=== PATIENT | female | born 1960 | race Hispanic/Latino ===

== ENCOUNTER 2018-08-18 20:58 | Inpatient (IN) | payer OTHER | END 2018-08-21 11:42 | disposition home or self-care (01) | LOC: 2CH 20:58 | DX: I24.9 Acute ischemic heart disease, unspecified (principal); E03.9 Hypothyroidism, unspecified; E87.6 Hypokalemia; I10 Essential (primary) hypertension ==

== ENCOUNTER 2019-04-27 05:55 | Inpatient (IN) | payer OTHER ==
[2019-04-26 10:43] VITALS: BP 142/86
[2019-04-27] VITALS (19 sets, daily range): BP systolic 102–146; BP diastolic 62–94
[~2019-04-27] VITALS: Ht 160 cm; Wt 61.4 kg
[~2019-04-27 05:55] MED LIST: AEC81 PO; ATOR40TA71 PO; CEFAZOLIN SODIUM 1 GM VIAL IVP SCH; DILT180C63 PO; LACTATED RINGERS 1000ML 1,000 ML IV SCH; LEVO50TA11 PO; OMEP-50 PO; ONDANSETRON HCL 4 MG/2 ML VIAL IVP PRN; TOPI50TA24 PO
[2019-04-27] MEDS ORDERED: LACTATED RINGERS 1000ML 1,000 ML IV ONE (07:47)
[2019-04-27] MEDS ORDERED: CEFAZOLIN SODIUM 1 GM VIAL ONE (07:47)
[2019-04-27] MEDS ORDERED: LIDOCAINE PF 2% 5ML ABBOJECT ONE (07:52)
[2019-04-27] MEDS ORDERED: MIDAZOLAM HCL 1 MG/ML 2ML VIAL ONE (07:53)
[2019-04-27] MEDS ORDERED: ROCURONIUM 10MG/1ML SYR 10 MG/ML ML ONE (07:53)
[2019-04-27] MEDS ORDERED: PROPOFOL 10 MG/ML 20ML VIAL IV ONE (07:53)
[2019-04-27] MEDS ORDERED: KETAMINE 50MG/ML SYRINGE 50 MG/ML DISP.SYRIN IV ONE (07:56)
[2019-04-27] MEDS ORDERED: MAGNESIUM SULFATE 1 GM/2 ML VIAL ONE (07:57)
[2019-04-27] MEDS ORDERED: DEXMEDETOMIDINE HCL 200 MCG in SODIUM CHLORIDE 0.9% 50 ML IV SCH (08:15)
[2019-04-27] MEDS ORDERED: MEPERIDINE-PF 25 MG/ML SYG ONE ×3 (08:53→12:03)
[2019-04-27] MEDS ORDERED: GLYCOPYRROLATE 1 MG/5 ML SYRINGE ONE (09:39)
[2019-04-27] MEDS ORDERED: NEOSTIGMINE 5MG/5ML SYR IV ONE (09:39)
[2019-04-27] MEDS ORDERED: ONDANSETRON HCL 4 MG/2 ML VIAL ONE (09:41)
[2019-04-27] MEDS ORDERED: PHENYLEPHRINE HCL 10 MG/ML 1ML VIAL IV ONE (09:48)
[2019-04-27] MEDS ORDERED: EPHEDRINE SULFATE 50 MG/ML AMPULE ONE (09:49)
[2019-04-27] MEDS ORDERED: ONDANSETRON HCL 4 MG/2 ML VIAL IVP PRN (12:00)
[2019-04-27] MEDS ORDERED: IBUPROFEN 600 MG TABLET PO PRN (12:00)
[2019-04-27] MEDS ORDERED: PROMETHAZINE HCL 25 MG/ML 1ML AMPULE IM PRN ×2 (12:00)
[2019-04-27] MEDS ORDERED: ACETAMINOPHEN-CODEINE 300/30MG TAB PO PRN (12:00)
[2019-04-27] MEDS ORDERED: MEPERIDINE-PF 75 MG/ML SYG IM PRN (12:00)
[2019-04-27] MEDS ORDERED: MEPERIDINE-PF 50 MG/ML SYG ONE (12:03)
[2019-04-27] MEDS: DEXTROSE 5 %-0.45 % NACL 1,000 ML IV SCH ×2 (13:00→18:40)
[2019-04-27] MEDS: SIMETHICONE 80 MG TAB.CHEW PO PRN (21:12)
[2019-04-27] MEDS: DOCUSATE SODIUM 100 MG CAP PO PRN (21:13)
[2019-04-28] VITALS (7 sets, daily range): BP systolic 114–147; BP diastolic 72–100
[2019-04-28] MEDS: DEXTROSE 5 %-0.45 % NACL 1,000 ML IV SCH (03:33)
--- NOTE | 2019-04-28 03:53 | NUR ---
COMFORT C/O SLIGHT SAMANIEGO, SLIGHT ABD PAIN, REFUSES PAIN MED, B/P 145/88, TURNING TO SIDES WELL Addendum: 04/28/19 at 0354 by DEB KLEIN LVN Amended: Links added.
[2019-04-28 05:21] LABS: MEAN CORPUSCULAR HEMOGLOBIN 30.3 pg (27.0-33.0); MEAN CORPUSCULAR HGB CONC 33.4 g/dL (32.0-36.0); MEAN CORPUSCULAR VOLUME 90.8 fL (79-99); NUCLEATED RED BLOOD CELLS 0.1 % (0.0-0.19); PLATELET COUNT (AUTO) 132 K/uL (130-400); RED CELL DISTRIBUTION WIDTH 13.9 % (11.0-15.5); WHITE BLOOD COUNT (AUTO) 14.3 K/uL (4.8-10.8)
--- NOTE | 2019-04-28 08:30 | NUR ---
BLADDER TRAINING ASSISTED PT OOB TO CHAIR. BLADDER TRAINING INSTRUCTIONS STARTED AND CATHETER PUGGED AT THIS TIME. PT INSTRUCTED TO PLUG CATHETER FOR 4 HOURS AND THEN MEASURE RESIDUAL. PT AND VERBALIZED UNDERSTANDING. WILL OBSERVE PT AND ANSWER QUESTIONS THROUGHOUT SHIFT NEEDED
[2019-04-28] MEDS: SIMETHICONE 80 MG TAB.CHEW PO PRN ×3 (09:52→20:57)
[2019-04-28] MEDS: DOCUSATE SODIUM 100 MG CAP PO PRN ×2 (09:52→20:57)
[2019-04-28] MEDS ORDERED: DILTIAZEM HCL 180 MG CAP.SR.24H PO SCH (10:00)
[2019-04-28] MEDS: TOPIRAMATE 25 MG TABLET PO SCH ×2 (11:53→21:00)
[2019-04-28] MEDS ORDERED: IBUPROFEN 800 MG TAB ONE (14:56)
[2019-04-28] MEDS ORDERED: HYDROCODONE/ACETAMINOPHEN 5/325 MG TAB PO PRN (15:00)
[2019-04-28] MEDS ORDERED: ACETAMINOPHEN-CODEINE 300/30MG TAB PO PRN (15:00)
--- NOTE | 2019-04-28 15:00 | NUR ---
DRESSING CHANGE DRESSING TO SUPRAPUBIC AREA REMOVED AND CLEAN DRESSING APPLIED.
[2019-04-28] MEDS: BISACODYL 10 MG SUPP.RECT RC PRN (18:24)
--- NOTE | 2019-04-28 20:00 | NUR ---
STATUS VOIDED 100 ML , CATHETER RESIDUAL 100 ML Addendum: 04/29/19 at 0159 by DEB KLEIN LVN Amended: Links added.
[2019-04-28] MEDS ORDERED: ATORVASTATIN CALCIUM 40 MG TABLET PO SCH (21:00)
[2019-04-29 03:34] VITALS: BP 126/79
[2019-04-29] MEDS: BISACODYL 10 MG SUPP.RECT RC PRN (06:24)
[2019-04-29] MEDS ORDERED: LEVOTHYROXINE 50 MCG TABLET PO SCH (06:30)
[2019-04-29 07:43] VITALS: BP 112/80
[2019-04-29] MEDS ORDERED: PANTOPRAZOLE SODIUM 40 MG TABLET.DR PO SCH (08:00)
--- NOTE | 2019-04-29 08:00 | NUR ---
DR. SOLARES ROUNDED AND DISCHARGED PATIENT TO HOME. HAS REMAINED AFEBRILE AND STABLE AND HAS BEEN ABLE TO VERBALIZED AND DEMONSTRATED UNDERSTANDING CARE OF SUPRAPUBIC CATHETER.
[2019-04-29] MEDS: TOPIRAMATE 25 MG TABLET PO SCH (09:00)
[2019-04-29] MEDS: IBUPROFEN 800 MG TAB PO PRN ×2 (09:09)
[2019-04-29] MEDS: DOCUSATE SODIUM 100 MG CAP PO PRN (09:15)
--- NOTE | 2019-04-29 10:30 | NUR ---
PATIENT WAS GIVEN DISCHARGE INSTRUCTIONS IN [place] AND VERBALIZED UNDERSTANDING INSTRUCTIONS GIVEN. INSTRUCTIONS ON DR. SOLARES'S SUPRAPUBLIC CATHETER CARE REINFORCED AND PATIENT DEMONSTRATED UNDERSTANDING INSTRUCTIONS GIVEN ORALLY AND WRITTEN. PATIENT HAS SPOUSE AT BEDSIDE AND IS VERY MUCH INFORMED OF HOME CARE AND WILL BE ASSISTING PATIENT WITH APPLICATION OF BINDER AND DRESSING CHANGES.
--- NOTE | 2019-04-29 10:59 | NUR ---
DC PLAN PATIENT DISCHARGED ALREADY GONE. INFO FROM MEDICAL RECORD. NO NEEDS VERBALIZED BY NURSING STAFF. Addendum: 04/29/19 at 1102 by MARY BESS RN CM Amended: Links added.
--- NOTE | 2019-04-29 11:00 | NUR ---
PATIENT WAS TAKEN VIA W/C TO FAMILY VEHICLE AND WAS DISCHARGED TO SPOUSE IN STABLE CONDITION. FOLLOW UP APPT. GIVEN FOR 05/03/19 AT 2:45PM. PATIENT AWARE OF INFO TO WRITE ON DAILY LOG AND TAKE TO DR. SOLARES'S OFFICE ON FOLLOW UP APPT.
== END 2019-04-29 11:00 | disposition home or self-care (01) | DRG 743 ==
LOC: DAH 05:55 → DAHIP 05:56 → DAH 05:56 → WSH 11:50
PROVIDERS: ADMIT Obstetrics & Gynecology; ATTEND Obstetrics & Gynecology
PROC: 0UT9FZZ Resection of Uterus, Via Natural or Artificial Opening With Percutaneous Endoscopic Assistance (ICD-10-PCS; principal; 2019-04-27 08:19)
PROC: 0UT2FZZ Resection of Bilateral Ovaries, Via Natural or Artificial Opening With Percutaneous Endoscopic Assistance (ICD-10-PCS; 2019-04-27 08:19)
PROC: 0UT7FZZ Resection of Bilateral Fallopian Tubes, Via Natural or Artificial Opening With Percutaneous Endoscopic Assistance (ICD-10-PCS; 2019-04-27 08:19)
DX: N81.3 Complete uterovaginal prolapse (principal); K46.9 Unspecified abdominal hernia without obstruction or gangrene; N73.6 Female pelvic peritoneal adhesions (postinfective)
CPT/HCPCS: 36415; 85027; 86850; 86900; 86901; 88305; 88307; A4344; A4351; G0378; J0690; J2001; J2175; J2250; J2370; J2405; J2550; J2704; J2710; J3475; J3490; J7120

== ENCOUNTER 2024-01-30 10:05 | Emergency (ER) | payer BC, OTHER ==
[~2024-01-30] VITALS: Ht 157.5 cm; Wt 72.6 kg
[~2024-01-30 10:05] MED LIST changes: -CEFAZOLIN SODIUM 1 GM VIAL IVP SCH; -LACTATED RINGERS 1000ML 1,000 ML IV SCH; -OMEP-50 PO; +OMEP20CA12 PO; -ONDANSETRON HCL 4 MG/2 ML VIAL IVP PRN; +TOPI-97 PO; -TOPI50TA24 PO
[2024-01-30] MEDS: 0.9%NACL 1000ML 1,000 ML IV STA ×2 (10:39→12:32)
[2024-01-30 11:01] LABS: SARS-CoV-2, RNA, NAAT POSITIVE SARS CoV-2 (NEGATIVE)
[2024-01-30 11:04] LABS: INFLUENZA TYPE A Negative For Type A (NEGATIVE); INFLUENZA TYPE B Negative For Type B (NEGATIVE)
[2024-01-30 11:38] LABS: BASOPHILS # (AUTO) 0.04 K/uL (0.00-0.20); BASOPHILS % (AUTO) 0.9 % (0.0-5.0); EOSINOPHILS # (AUTO) 0.01 K/uL (0.00-0.70); EOSINOPHILS % (AUTO) 0.2 % (0.0-8.0); HEMATOCRIT 41.1 % (36-48); IMMATURE GRANULOCYTE ABSOLUTE 0.01 K/uL (0-1); LYMPHOCYTES # (AUTO) 1.2 K/uL (1.0-4.8); LYMPHOCYTES % (AUTO) 26.3 % (21.0-51.0); MEAN CORPUSCULAR HGB CONC 33.8 g/dL (32.0-36.0); MEAN CORPUSCULAR VOLUME 88.8 fL (79-99); MONOCYTES # (AUTO) 0.5 K/uL (0.1-1.0); MONOCYTES % (AUTO) 10.5 % (3.0-13.0); NEUTROPHILS # (AUTO) 2.7 K/uL (1.8-7.7); NEUTROPHILS % (AUTO) 61.9 % (40.0-77.0); PLATELET COUNT (AUTO) 172 K/uL (130-400); RED BLOOD CELL COUNT(AUTO) 4.63 MIL/uL (4.00-5.50); RED CELL DISTRIBUTION WIDTH 13.3 % (11.0-15.5); WHITE BLOOD COUNT (AUTO) 4.4 K/uL (4.8-10.8)
[2024-01-30 11:50] LABS: ALBUMIN 3.6 g/dL (3.5-5.0); BILIRUBIN,TOTAL 0.2 mg/dL (0.2-1.0); CREATININE 0.9 mg/dL (0.5-1.0); POTASSIUM 3.1 mmol/L (3.5-5.1)
[2024-01-30] MEDS: POTASSIUM BICARB/CIT AC 25 MEQ TABLET.EFF PO STA (12:31)
[2024-01-30 13:28] VITALS: BP 114/72; PULSE 76; RESP 17; O2SAT 100
[2024-01-30] MEDS ORDERED: MECLIZINE HCL 25 MG TABLET PO ONE (13:30)
== END 2024-01-30 13:45 | disposition home or self-care (01) ==
LOC: EDH 10:05
DX: U07.1 COVID-19 (principal); R55 Syncope and collapse; R19.7 Diarrhea, unspecified; E78.00 Pure hypercholesterolemia, unspecified; I10 Essential (primary) hypertension; E03.9 Hypothyroidism, unspecified; Z90.710 Acquired absence of both cervix and uterus; Z79.899 Other long term (current) drug therapy; Z79.82 Long term (current) use of aspirin
CPT/HCPCS: 99284; 96360; 70450; 71045; 87635; 96361; 84484; 80053; 85025; 87804 ×2; 36415; 93005; J7030 ×2